=== PATIENT | male | born 1980 | race Caucasian/White ===

== ENCOUNTER 2021-12-06 12:44 | Emergency (ER) | payer OTHER, SELFPAY ==
--- NOTE | 2021-12-06 12:46 | ED.HA ---
HPI - Headache General Chief Complaint: Headache Stated Complaint: Headache Time Seen by Provider: 12/06/21 13:03 Source: patient Mode of arrival: ambulatory Limitations: no limitations History of Present Illness HPI Narrative: 41-year-old male presents with concern for headache. Reports headache started approximately 3 hours ago. Reports he took ibuprofen an hour into the headache without relief. He reports he has had similar headaches like this in the past. Reports he has never been diagnosed with migraines. He denies weakness in any extremity. He denies difficulty speaking or swallowing. He denies thunderclap headache. He reports this is not the worst headache of his life. He denies nasal congestion, rhinorrhea, sinus pain, sinus congestion, sore throat, body aches, chills, fever, sweats. He denies teary eyes or runny nose. He denies illicit drug use MD elicited complaint: headache Related Data Allergies Allergy/AdvReac Type Severity Reaction Status Date / Time Anesthetics - Amide Type - Allergy Anaphylaxis Verified 12/06/21 13:00 Select A Review of Systems Review of Systems: CONSTITUTIONAL: Denies malaise, chills, sweats, or fever. EYES: Denies visual changes ENT: Denies rhinorrhea, congestion, sinus pain, otalgia or sore throat. CARDIOVASCULAR: Denies chest pain, palpitations, or edema. RESPIRATORY: Denies cough or dyspnea. GASTROINTESTINAL: Denies abdominal pain, nausea, vomiting, diarrhea MUSCULOSKELETAL: Denies back pain or myalgia. NEUROLOGIC: Denies numbness, weakness. Reports posterior headache. All systems reviewed & are unremarkable except as noted in HPI and below [facility] Comments At time of signature, agree with nursing past medical, surgical, social and family history. There is no relevant family history pertinent to the presenting complaint Exam Narrative: GENERAL: Nontoxic-appearing, and in no acute distress. HEAD: Normocephalic, atraumatic. EYES: PERRLA, pupils pinpoint, sclera clear, and EOMI. No nystagmus. ENT: Nares clear, turbinates pink, no rhinorrhea or epistaxis. Mucous membranes moist. TM pearly caraballo with sharp light reflex bilaterally; no tragal tenderness. Oropharynx without erythema or lesions. Tonsils not enlarged and without exudate. NECK: Supple. No lymphadenopathy. No jugular venous distension, thyromegaly, or carotid bruits. Carotids were easily palpable bilaterally. CHEST: No respiratory distress. Clear to auscultation. No bony deformities, no asymmetry. Speaks in full sentences. HEART: Regular rate and rhythm. No murmur heard. Normal peripheral pulses. EXTREMITIES: Normal range of motion. No edema. Normal strength and sensation. SKIN: Warm, dry, no visible rash. NEURO: Alert and oriented x3. No focal deficits. Cranial nerves II through XII grossly intact PSYCH: Flat affect, appears intoxicated Course Course Emergency Course: Discussed limited diagnostic capability at the [facility] for headaches. Discussed transfer to emergency department for further evaluation. Patient refuses transfer to emergency department, understand risks of not seeking further care of his symptoms. Patient denies illicit drug use. Anticipatory guidance given. Patient agrees to follow-up as directed and is aware of reasons to seek care at the emergency department. Portions of this record may have been created with voice recognition software Level of Care: Express Care Visit Vital Signs Vital signs: Reviewed. MDM - Headache MDM Narrative Medical decision making narrative: The patient presents with an acute onset headache for 2-3 hours in duration. Patient has history of similar headaches. There is not a history of anticoagulation, trauma, , cancer or immunocompromised state. Mental status was normal, no neurological deficits were noted. Differential Diagnosis considered includes hypertensive emergency, subarachnoid hemorrhage, meningitis, trauma, CVA, migraine. Based on the patient's history and
[2021-12-06 12:50] VITALS: BP 191/58; PULSE 104; RESP 16; TEMP 36.6; O2SAT 95
[2021-12-06 13:00] VITALS: BP 191/58; PULSE 104; RESP 16; TEMP 36.6; O2SAT 95
== END 2021-12-06 13:16 | disposition home or self-care (01) ==
PROVIDERS: Emergency Provider Nurse Practitioner
DX: R51.9 Headache, unspecified (principal)
CPT/HCPCS: 99213; G0463